=== PATIENT | male | born 1945 | race Caucasian/White ===

== ENCOUNTER 2017-01-05 19:39 | Observation (INO) | payer MEDICARE, OTHER ==
[~2017-01-05] VITALS: Ht 185.4 cm; Wt 112.6 kg
--- NOTE | ~2017-01-05 | CON ---
PATIENT'S NAME: PAMELA MULLINS [facility] AGE: 71 Y [address] ROOM: [place] [address] LOCATION: [facility] [place] ADMIT DATE: 01/05/2017 Consultation DISCHARGE DATE: FAMILY PHYSICIAN: Marshall Shore MD ATTENDING PHYSICIAN: Marshall Shore DATE OF CONSULTATION: 01/06/2017 REFERRING PHYSICIAN: Andrews Lee MD CHIEF COMPLAINT: Bilateral ear pain, erythema, and swelling. HISTORY OF PRESENT ILLNESS: The patient is a 71-year-old gentleman who presents today with approximately 4- 5 day history of bilateral ear swelling, pain, discomfort with associated erythema. The patient had a near syncopal spell 2 days ago in association with fever of 103.1. The patient presents to the emergency room, CBC was normal, sedimentation rate was elevated. The patient has significant pain and swelling of his ears, right and left respectively, with associated inflammation extending over his forehead. The patient has no prior history. He currently is without any pain or discomfort. Denies any double vision or blurry vision. He denies any preceding upper respiratory tract symptoms. PAST MEDICAL HISTORY: 1. Hypertension. 2. History of peripheral vascular disease. 3. History of ijl-mnttduy-ddwcnqoeg diabetes mellitus. 4. Hypothyroidism. ALLERGIES: NONE. MEDICATIONS: See accompanied med sheet. SOCIAL HISTORY: He is 71-year-old gentleman. 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 FAMILY HISTORY: Noncontributory. REVIEW OF SYSTEMS: Noted and documented in the H and P. PHYSICAL EXAMINATION: PATIENT'S NAME: ZAMZAM MULLINSMY Stephane [facility] AGE: 71 Y [address] ROOM: [place] [address] LOCATION: [facility] [place] ADMIT DATE: 01/05/2017 Consultation DISCHARGE DATE: FAMILY PHYSICIAN: Marshall Shore MD ATTENDING PHYSICIAN: Marshall Shore GENERAL: He is a well-developed, well-nourished gentleman. He is alert, oriented, very cooperative to exam. VITAL SIGNS: Stable. The patient is currently afebrile. HEENT: Eyes: EOMI. SUMMER. Conjunctiva is clear. Ears: Right ear; external ear is swollen, slightly inflamed, it is nontender to palpation. External canal is normal. TM is clear. Left ear; external ear is slightly swollen and minimally erythematous, inflamed, nontender. External canal is normal. TM is clear. Nose: Nasal mucosa is nonedematous, nonerythematous. There is no rhinorrhea. Oropharynx and Oral Cavity: Tongue is midline. Normal gag. No lymphoid hyperplasia. No postnasal drainage. NECK: No lymphadenopathy or masses. Trachea is midline. Thyroid has no palpable abnormality. NEURO: Cranial nerves 2 through 12 were grossly intact. 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 RECOMMENDATIONS: Although the patient does not necessarily meet criteria for principal diagnosis of relapsing polychondritis signs and symptoms are consistent with this, I recommend consideration of oral steroid treatment to see if obtains appropriate response. Further medical workup per Internal Medicine. MD MAGALY GAMEZ/liliana /[id number] d: 01/06/17 1811 t: 01/13/17 1213, CONSULTATION REPORT
--- NOTE | ~2017-01-05 | HP ---
PATIENT'S NAME: PAMELA MULLINS [facility] AGE: 71 Y [address] ROOM: [place] [address] LOCATION: [facility] [place] ADMIT DATE: 01/05/2017 History & Physical DISCHARGE DATE: FAMILY PHYSICIAN: Marshall Shore MD ATTENDING PHYSICIAN: MYAH GU V DATE OF SERVICE: CHIEF COMPLAINT: Fever and swollen ears. HISTORY OF PRESENT ILLNESS: The patient is a 71-year-old male, who carries past medical history of non- insulin-dependent diabetes. He presented to the ER with complaints of 2 days of fever in the afternoon. This was accompanied by an episode of near syncope earlier today. He also reports swelling in both of his ears extending into the temporal regions as well as lateral forehead. He denies any vision problems. He denies any migrating muscle joint aches. Denies any nausea, vomiting, diarrhea, chest pain, shortness of breath, or palpitations. On the exam, he does admit tenderness to palpation in his preauricular region bilaterally, more pronounced on the left. The patient has right carotid artery bruit. REVIEW OF SYSTEMS: All systems have been reviewed and negative aside for pertinent positives mentioned above. PAST MEDICAL HISTORY: As reported by the patient it is that of kka-scwejpj-nmntneaev diabetes, hypertension, and cerebrovascular disease which has not been intervened on, though I do appreciate the patient is also on gabapentin and Aricept as well. SURGICAL HISTORY: Reviewed and is noncontributory. SOCIAL HISTORY: The patient lives at home with his spouse. Denies any history of ongoing toxic habits. FAMILY HISTORY: Reviewed and is noncontributory due to his advanced age. PATIENT'S NAME: PAMELA MULLINS [facility] AGE: 71 Y [address] ROOM: [address] [address] LOCATION: [facility] [place] ADMIT DATE: 01/05/2017 History & Physical DISCHARGE DATE: FAMILY PHYSICIAN: Marshall Shore MD ATTENDING PHYSICIAN: MYAH GU V CURRENT MEDICATIONS: 1. Aricept. 2. Cardizem. 3. Diovan/hydrochlorothiazide. 4. Flomax. 5. Gabapentin. 6. Glimepiride. 7. Maple. 8. Ibuprofen. 9. Levothyroxine. 10. Metformin. 11. Rosuvastatin. PHYSICAL EXAMINATION: VITAL SIGNS: Temperature 103.1 Fahrenheit, saturating 92% on room air, blood pressure 169/80, and respirations are 18. GENERAL: Appears as a well-developed, well-nourished, elderly gentleman, in no acute distress. HEENT: Remarkable for diffuse swelling and erythema of the soft tissues of his left ear. This constant erythema extends into his preauricular region, which is tender to palpation and further extends into the lateral left forehead. The ear canal actually is unremarkable and TMs are visualized without any bulging or exudate in them. The exam is similar, but not as pronounced on the right side. I do appreciate fairly bounding pulses in bilateral temporal arteries. His eye exam shows no abnormality. He has preserved visual acuity. LYMPHATIC: Shows no cervical lymphadenopathy. ENDOCRINE: Shows no thyromegaly. LUNGS: Clear to auscultation in all adkins. HEART: Heart rate is regular with no appreciable murmurs, gallops, or rubs. GI: Abdomen is soft, nontender, and nondistended. : Reveals no costovertebral angle tenderness. VASCULAR: Shows 2+ pedal pulses. Right carotid bruit present. MUSCULOSKELETAL: Shows no muscle joint abnormalities. SKIN: Quite warm, but dry. NEUROLOGIC: Nonfocal. LABORATORY DATA: Studies from the ER significant for an EKG, which is showing sinus rhythm without any significant T-wave or ST-segment abnormalities. Chest x-ray shows poor inspiratory effort, but no exudates or congestion. Studies performed in the ER significant for creatinine of 1.7 with an unknown baseline. Glucose 160. Procalcitonin is 0.29. Unremarkable CBC as well as negative cardiac enzymes. PATIENT'S NAME: PAMELA MULLINS [facility] AGE: 71 Y [address] ROOM: [place] [address] LOCATION: [facility] [place] ADMIT DATE: 01/05/2017 History & Physical DISCHARGE DATE: FAMILY PHYSICIAN: Marshall Shore MD ATTENDING PHYSICIAN: MYAH GU V ASSESSMENT AND PLAN: A 71-year-old male, who will be admitted for observation with fever, near- syncope, and bilateral ear/temporal region rash. Individual problems to be addressed as follows. 1. Temporal erythema and tenderness. I am concerned about temporal arteritis in this gentleman and I have ordered for a sedimentation rate to be checked. If the sedimentation rate is elevated, we will treat him with steroids emergently. We will also conduct an MRI/MRA of his brain to rule out any vascular involvement. We will get an Ophthalmology evaluation as well. Regardless of the ESR, we will treat him for potential bilateral otitis externa with oral ciprofloxacin and follow him clinically and consider an ENT consultation. 2. Near syncope. The patient does report "85%" blocked off right carotid artery and as such, we will do carotid Dopplers. The patient may benefit from a CTA once we address his renal function. 3. Azotemia. I am not sure what the patient's baseline renal function is, but we will hydrate him and hold off his nephrotoxics and monitor his renal function. 4. Essential hypertension. The patient will need additional agents to control his blood pressure given that we are going to be holding off his hydrochlorothiazide and Diovan. 5. Type 2 diabetes. We will have to hold off on his metformin given his azotemia. I suspect the patient will require significant amounts of insulin especially if we put him on steroids. 6. Additional management will depend on the outcome of the plan, diagnostic, and therapeutic workup. Time dedicated to this patient's encounter is 35 minutes. MD JESUS CHOWDARY/liliana /[id number] D: [id number] T: [id number] HISTORY & PHYSICAL
--- NOTE | ~2017-01-05 | ER ---
PATIENT'S NAME: ZAMZAM MULLINSMY Stephane [facility] AGE: 71 Y [address] ROOM: [place] [address] LOCATION: ED ADMIT DATE: 01/05/2017 ER/Outpatient Report DISCHARGE DATE: FAMILY PHYSICIAN: Marshall Shore MD ATTENDING PHYSICIAN: Hal Jean Baptiste Time of Arrival: 1939 hours. Time of Evaluation: 1948 hours. CHIEF COMPLAINT: Swollen left ear and chills. HISTORY OF PRESENT ILLNESS: This is a 71-year-old male, who presents to the ER, who states he has not been feeling well for the past 3 days. He states he has noticed that he has had a swollen left ear and redness to his skin over his forehead and around his left ear as well. He states he also noticed a small area of redness to the right side of his face as well. He states that he has had a little slight cough. He states he always feels short of breath, so that is not new for him. He states that this morning he felt pretty good, he went to work, worked till about 2 o'clock, and then noticed he was not starting to feel well. He states that he was having some chills. He states yesterday when he was not feeling well, he had an episode where he felt like he was going to fall down, but he came right out of it. He states that he has no sore throat. No chest pain. No vomiting. No diarrhea. He states the ear has a little bit of discomfort, but he states it is not itchy, has had no drainage from the ear canal itself. ALLERGIES: NO KNOWN ALLERGIES. MEDICATIONS: Please see medication list nurse's notes. PAST MEDICAL HISTORY: 1. Mrt-jadslpx-pilxudfrj diabetic. 2. Heart disease. 3. Hypertension. 4. Hypothyroidism. 5. Dementia. 6. BPH. 7. High cholesterol. SOCIAL HISTORY: Denies smoking, drug, or alcohol use. PATIENT'S NAME: ZAMZAM MULLINSMY Stephane [facility] AGE: 71 Y [address] ROOM: [place] [address] LOCATION: ED ADMIT DATE: 01/05/2017 ER/Outpatient Report DISCHARGE DATE: FAMILY PHYSICIAN: Marshall Shore MD ATTENDING PHYSICIAN: Hal Jean Baptiste REVIEW OF SYSTEMS: A 10-point review of systems was completed, was negative with the exception of those discussed in the HPI. PHYSICAL EXAMINATION: VITAL SIGNS: Height 6 feet and 1 inch stated, weight 112.6 kg taken, blood pressure is 169/80, pulse 79, respirations 18, temperature 103.1 degrees tympanically, and saturations 92% on room air. Suzie Coma Score is 15. GENERAL: Alert, well developed, 71-year-old, in no acute distress. HEENT: Head: Normocephalic. Eyes: Pupils are equal and reactive to light. Ears: The left ear, the whole ear, is actually swollen, erythematic. The canal inside does not look infected. The TM does not look infected. The right ear is clear. Nose: Turbinates pink with no drainage. Throat: No exudates or erythema. He does display moist mucous membranes. NECK: Supple. No lymphadenopathy. He does have a little bit of tenderness and swelling noted to the anterior portion of his left ear as well. LUNGS: Clear to auscultation bilaterally. No wheezes or crackles. Normal respiratory effort. HEART: Regular rate and rhythm. No lifts, thrills, or murmurs. ABDOMEN: Soft. It is nontender. He has good bowel sounds throughout. No masses were palpated. EXTREMITIES: No clubbing or cyanosis. He does have full range of motion of all limbs. SKIN: Warm to touch. The skin on his face, around his ear, and his forehead, almost appears hive-like in nature. There is no pustules. There is no drainage. LABORATORY DATA: CBC: White count is 10.0, hemoglobin is 11.5, and platelets 222. ANC is 8.2. CMS: BUN 26, creatinine 1.7, glucose is 160, estimated GFR is 40, sodium 136, potassium 3.9, and lactate is 1.3. Influenza A and B were negative. Procalcitonin is 0.29. Urinalysis was negative for any infection. Chest x- ray, no acute infiltrate was seen that was over-read by Dr. Cartwright and Radiology. I will be turning the patient's care over to Dr. Jean Baptiste at this time due to shift change. The patient understands and agrees with care. DERIC EMANUEL PA-C FOR HAL JEAN BAPTISTE MD ACJ/modl PATIENT'S NAME: PAMELA MULLINS [facility] AGE: 71 Y [address] ROOM: [place] [address] LOCATION: [facility] ADMIT DATE: 01/05/2017 ER/Outpatient Report DISCHARGE DATE: FAMILY PHYSICIAN: Marshall Shore MD ATTENDING PHYSICIAN: Hal Jean Baptiste /[id number] d: 01/05/172343 t: 01/10/17 181, OUTPATIENT REPORT
--- NOTE | ~2017-01-05 | ER ---
PATIENT'S NAME: PAMELA MULLINS [facility] AGE: 71 Y [address] ROOM: [address] [place], [place] [address] [place] [facility] [place]: 01/05/2017 ER/Outpatient Report DISCHARGE DATE: FAMILY PHYSICIAN: Marshall Shore MD ATTENDING PHYSICIAN: MYAH GU V HISTORY OF PRESENT ILLNESS: This patient is a 71-year-old male, who presented to the emergency room for evaluation with fever, chills, swelling of his left ear. The patient was initially seen by ANTIONE Davila. Please see Kiko's dictation in regard to the chief complaint, history of present illness, past medical history, and physical exam. Kiko Davila transferred the patient's care to me at shift change. She asked me to follow up with the patient's laboratory studies, final diagnosis, and treatment plan. LABORATORY DATA: The patient's CMS was normal except for an elevated glucose of 160, low calcium 8.3, elevated BUN of 26, elevated creatinine 1.7 with a low GFR of 40. The patient's CPK was normal at 315 with normal cardiac enzymes. His hemoglobin A1c was elevated at 6.8, white count was 10,000, differential of 83 segs, 8 lymphocytes, 9 monos, hemoglobin was 11.5, hematocrit 33.9, platelet count was 222,000. Sedimentation rate was elevated at 27. Prolactin was elevated at 0.29. Urinalysis showed 0-2 whites, 2-5 reds, 0-2 epithelial cells. Negative bacteria per high-powered field, negative nitrites. Culture pending. Two blood cultures drawn, results are pending. The patient's lactate was 1.3. IMAGING DATA: Chest x-ray showed no acute infiltrate or changes. Chest x-ray will be reviewed by Radiology. PHYSICAL EXAMINATION: VITAL SIGNS: The patient has swelling of both ears, the left greater than right. It is hot to the touch, inflamed with some red rash similar to like urticarial rash on his tenriism across the forehead. He has no other rash on his neck, back, chest, abdomen, or extremities. EMERGENCY DEPARTMENT COURSE: I did start the patient on IV normal saline, fluids. IMPRESSION: 1. Febrile illness, etiology uncertain. I do not know the source of his fever and elevated temperature. The patient does have swelling of his external ears, is left greater than right along with a rash in his left tenriism, across the left forehead into the right tenriism. Need to rule out PATIENT'S NAME: PAMELA MULLINS [facility] AGE: 71 Y [address] ROOM: [address] [address] [place] [facility] [place]: 01/05/2017 ER/Outpatient Report DISCHARGE DATE: FAMILY PHYSICIAN: Marshall Shore MD ATTENDING PHYSICIAN: MYAH GU V sepsis. There was a thought that we needed to rule out temporal arteritis. Awaiting culture results. 2. Renal insufficiency with BUN of 26, creatinine 1.7, low GFR of 40. 3. Elevated glucose with known diabetes mellitus type 2. Hemoglobin A1c was elevated at 6.8. PLAN: I did discuss this patient with Dr. Gu who came down to the emergency room to evaluate the patient. I did find out that the patient was a patient of Dr. Shore's. I did call and talked with Dr. Garcia and did discuss this patient with her. She told me to go ahead and have Dr. Gu take care of the patient. Dr. Gu is going to follow with the patient. The patient will be admitted to the hospital for further evaluation and treatment. I did discuss my findings and recommendations with the patient. He understands. MD VIPIN CASTILLO/liliana /[id number] d: 01/06/17 0415 t: 01/06/17 181, OUTPATIENT REPORT
[2017-01-05 20:35] LABS: BASOPHIL % 0.3 %; EOSINOPHIL % 0.4 %; HEMATOCRIT 33.9 % (37.0-53.0); HEMOGLOBIN 11.5 g/dL (11.0-16.0); IMMATURE GRANULOCYTE % 0.3 %; LYMPHOCYTE # 0.8 K/uL (0.8-4.0); LYMPHOCYTE % 7.9 %; MCHC 33.9 gm/dL (32.0-36.5); MCV 91.4 fl (83.0-98.0); MONOCYTE # 0.9 K/uL (0.0-1.0); MONOCYTE % 8.5 %; MPV 8.8 fl (9.4-12.4); NEUTROPHIL # (ANC) 8.2 K/uL (1.4-9.0); NEUTROPHIL % 82.6 %; NRBC % 0 /100WBC (0-0.00); PLATELET COUNT 222 K/uL (150-450); RBC 3.71 M/uL (3.50-5.50); RDW-CV 12.7 % (11.9-14.6)
[2017-01-05 20:54] LABS: ALBUMIN 3.8 gm/dL (3.5-5.0); ANION GAP 12.9 (10.0-19.0); CALCIUM 8.3 mg/dL (8.5-10.5); CREATININE 1.7 mg/dL (0.6-1.3); POTASSIUM 3.9 mMol/L (3.7-5.1); TOTAL BILIRUBIN 0.3 mg/dL (0.0-1.5); TOTAL PROTEIN 7.4 g/dL (6.0-8.4)
[2017-01-05 22:09] LABS: CPK 315 IU/L (35-332)
[2017-01-05 22:32] LABS: BILIRUBIN URINE NEGATIVE (NEGATIVE); BLOOD URINE 25 /UL (NEGATIVE); COLOR URINE YELLOW (YELLOW); GLUCOSE URINE NEGATIVE (NEGATIVE); KETONE URINE NEGATIVE (NEGATIVE); LEUKOCYTES URINE 25 /UL (NEGATIVE); NITRITE URINE NEGATIVE (NEGATIVE); PROTEIN URINE 30 mg/dL (NEGATIVE); TURBIDITY URINE CLEAR (CLEAR); UROBILINOGEN URINE 1 mg/dL (NORMAL)
[2017-01-05 22:39] LABS: BACTERIA URINE NEGATIVE (NEGATIVE); EPITHELIAL URINE 0-2 #/HPF (NEGATIVE); WBC URINE 0-2 #/HPF (NEGATIVE)
[2017-01-06] MEDS ORDERED: ARICEPT10 M1 PO (01:31)
[2017-01-06] MEDS ORDERED: CARDIZEM CD180 MG PO (01:32)
[2017-01-06] MEDS ORDERED: FLOMAX0.4 MG PO (01:33)
[2017-01-06] MEDS ORDERED: NEURONTIN600 MG PO (01:34)
[2017-01-06] MEDS ORDERED: AMARYL4 MG PO (01:35)
[2017-01-06] MEDS ORDERED: HYDROCODON-ACE1 EAC4 PO (01:37)
[2017-01-06] MEDS ORDERED: MOTRIN800 MG PO (01:38)
[2017-01-06] MEDS ORDERED: GLUCOPHAGE1000 MG PO (01:39)
[2017-01-06] MEDS ORDERED: LEVOTHROID (SY50 MCG PO (01:39)
[2017-01-06] MEDS ORDERED: CRESTOR20 MG PO (01:40)
--- NOTE | 2017-01-06 04:35 | NUR ---
THIS IS A 71 YEAR OLD MALE WHO IS BEING ADMITTED FOR LIKELY CELLULITIS TO THE LEFT EAR AND POSSIBLE RIGHT EAR. PT IS A/O X3 BUT FORGETFUL. PT LOST HIS DAUGTHER ABOUT 2 MONTHS AGO R/T COMPLICATIONS WITH HER DIABETIES AND KIDNEY FAILURE. PT LEFT EAR IS SWOLLEN AND REDNESS TO LEFT SIDE OF FACE. RIGHT EAR IS ALSO SWOLLEN BUT NOT BAD THE LEFT. 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 PT HAS HX OF CAD, HTN, TYPE 2 DIABETIES-ORAL CONTROLED, BPH, AND RECENT DEPRESSION R/T DAUGHTER. CARDIAC ENZYMES NEG, EKG NEG, WBC WNL. UA WAS ALSO NEG. PT HAD TEMP OF 103.1 IN ER
--- NOTE | 2017-01-06 04:50 | NUR ---
Significant Event:PT IS A/O X3. PT HAS SWELLING TO MYAH EARS BUT WORSE ON THE LEFT WITH REDNESS RADIATING TO THE LEFT SIDE OF THE FACE. PT HAS HX OF HTN. PT HAD TEMP OF 100.2 UPON ARRIVAL TO FLOOR AFTER RECIEVING 1000MG OF TYLENOL IN ER @ 1957. PT IS A HIGH FALL REISK DUE TO RECENT FALL SAT AND SUN. PT HAS 20 ROLANDO TO L HAND RUNNING NS@ 75ML/HR. PT TO HAVE CAROTID ULTRASOUND TODAY AND CONSULT W/ ENT. Follow up:MONITOR TEMP.
[2017-01-06 05:53] LABS: BASOPHIL % 0.3 %; EOSINOPHIL % 0.4 %; HEMATOCRIT 32.3 % (37.0-53.0); HEMOGLOBIN 10.6 g/dL (11.0-16.0); IMMATURE GRANULOCYTE % 0.2 %; LYMPHOCYTE # 1.2 K/uL (0.8-4.0); LYMPHOCYTE % 12.5 %; MCH 29.9 pg (27.0-34.0); MCHC 32.8 gm/dL (32.0-36.5); MCV 91.2 fl (83.0-98.0); MONOCYTE # 1.2 K/uL (0.0-1.0); MONOCYTE % 12.5 %; NEUTROPHIL # (ANC) 6.8 K/uL (1.4-9.0); NEUTROPHIL % 74.1 %; NRBC % 0 /100WBC (0-0.00); PLATELET COUNT 213 K/uL (150-450); RBC 3.54 M/uL (3.50-5.50); RDW-CV 12.6 % (11.9-14.6); WBC 9.2 K/uL (4.0-11.0)
[2017-01-06 06:06] LABS: ANION GAP 13.7 (10.0-19.0); CALCIUM 8.1 mg/dL (8.5-10.5); CREATININE 1.3 mg/dL (0.6-1.3); POTASSIUM 3.7 mMol/L (3.7-5.1)
[2017-01-06] MEDS ORDERED: PAXIL20 MG PO (16:17)
[2017-01-06] MEDS ORDERED: DIOVAN HCT 3201 EAC1 PO (16:17)
--- NOTE | 2017-01-06 16:43 | NUR ---
Met with patient at bedside. Introduced myself and the explained the role of the CM department. Patient works timekeeper. He was independent with all of his ADL's prior to this hospital stay. He plans to discharge to home and does not anticipate having any discharge needs. Patient was cold so I got him an extra blanket. Will continue to follow.
--- NOTE | 2017-01-06 16:55 | NUR ---
SIgnificant event: Patient is alert and oriented x3, forgetful at times. Is hard of hearing. VSS. No fever this shift. Has been ambulating with one assist. Tylenol given x1 this morning for discomfort in ears and forehead. IV to Left hand is saline locked. Blood sugars today 123 w/ no coverage and 204 with 4 units given. Bilateral ears remain swollen, but do appear less red. Left forehead is red also, though seems to be less than this morning. Cooperative with cares.
--- NOTE | 2017-01-07 02:47 | NUR ---
Significant Event: ALERT AND ORIENTED X3 FORGETFUL AT TIMES NEEDS REINFORCEMENT WITH TEACHING AND INSTRUCTIONS. IS HARD OF HEARING VS WNL AFEBRILE ON RA. ADA DIET. ACHS GAVE 4 UNITS AT HS. IV SL TO L) HAND. ON TELE NO EVENTS THIS SHIFT. GAVE ORDERS TO BE UP AT [facility]O TOLERATED. BED ALARMS ON OVERNIGHT. COORPERATIVE WITH CARES. Follow up: MONITOR GAIT TO DETERMINE ASSIST LEVEL.
[2017-01-07 06:02] LABS: HEMATOCRIT 33.2 % (37.0-53.0); HEMOGLOBIN 11.3 g/dL (11.0-16.0); MCH 30.5 pg (27.0-34.0); MCV 89.5 fl (83.0-98.0); MPV 8.7 fl (9.4-12.4); PLATELET COUNT 234 K/uL (150-450); RBC 3.71 M/uL (3.50-5.50); RDW-CV 12.2 % (11.9-14.6); WBC 5.9 K/uL (4.0-11.0)
[2017-01-07 06:25] LABS: CALCIUM 8.3 mg/dL (8.5-10.5); CREATININE 1.2 mg/dL (0.6-1.3)
[2017-01-07 06:59] LABS: ABSOLUTE NEUTROPHIL CT (ANC) 5.3 K/uL (1.4-9.0); BANDED NEUTROPHIL # 0.1 K/uL (0.0-0.1); BANDED NEUTROPHILS % 1 %; LYMPHOCYTE # 0.6 K/uL (0.8-4.0); LYMPHOCYTE % 11 %; SEGMENTED NEUTROPHIL # 5.2 K/uL (1.4-9.0); SEGMENTED NEUTROPHIL % 88 %
[2017-01-07] MEDS ORDERED: TYLENOL EXTRA500 MG PO (08:37)
--- NOTE | 2017-01-07 09:22 | NUR ---
D: Orders received for the patient to be discharged to home today. I: Dismissal instructions were prepared and reviewed with the patient and family at bedside. The following information was discussed including Krames teaching sheets provided. MyPlate worksheet: 2000 calories, Healthy meals for diabetes, understanding Carbohydrates, Discharge instructions for acute kidney injury, preventing DVT and Tylenol. Reviewed follow up appointments with Dr. Shore and if any further questions at home to notify [facility] and speak with Dr. Shore's nurse. R: The patient verbalized understanding of the dismissal education at the time teaching with no further questions. P: The above information was shared with the primary nurse and charge nurse that the discharge education was completed. The patient is ready for discharge to the front door via wheel chair by nursing staff. The student nurse took vitals and removed the patient's IV prior to discharge.
--- NOTE | 2017-01-07 10:19 | NUR ---
Diabetes Consult: Stopped by the patient's room to assess diabetes education needs. Patient is current not in his room. Will continue to follow.
== END 2017-01-07 09:00 | disposition disaster alternative care site (69) ==
LOC: GMED 19:39 → GMSU 23:28
PROVIDERS: Emergency Medicine; Family Medicine; Physician Assistant Medical; ADMIT Internal Medicine
DX: M94.8X9 Other specified disorders of cartilage, unspecified sites (principal); N17.9 Acute kidney failure, unspecified; R55 Syncope and collapse; R79.89 Other specified abnormal findings of blood chemistry; I10 Essential (primary) hypertension; E11.9 Type 2 diabetes mellitus without complications; E03.9 Hypothyroidism, unspecified; F32.9 Major depressive disorder, single episode, unspecified
CPT/HCPCS: G0378; J1200; J2930; J7030

== ENCOUNTER → 2017-01-28 | Outpatient (CLI) | payer MEDICARE, OTHER ==
[~2017-01-28] MED LIST: AMARYL4 MG PO; ARICEPT10 M1 PO; CARDIZEM CD180 MG PO; CRESTOR20 MG PO; DIOVAN HCT 3201 EAC1 PO; FLOMAX0.4 MG PO; GLUCOPHAGE1000 MG PO; HYDROCODON-ACE1 EAC4 PO; LEVOTHROID (SY50 MCG PO; MOTRIN800 MG PO; NEURONTIN600 MG PO; PAXIL20 MG PO; TYLENOL EXTRA500 MG PO
== END | disposition disaster alternative care site (69) ==
LOC: GRAD 12:19
DX: R00.2 Palpitations (principal); R91.1 Solitary pulmonary nodule; R06.02 Shortness of breath; R79.1 Abnormal coagulation profile; I51.7 Cardiomegaly
CPT/HCPCS: Q9967

== ENCOUNTER → 2017-02-17 | Outpatient (CLI) | payer MEDICARE, OTHER | END | disposition disaster alternative care site (69) | LOC: GKIC 11:30 | DX: R91.1 Solitary pulmonary nodule (principal) | CPT/HCPCS: A9552 ==